=== PATIENT | female | born 1975 | race Caucasian/White ===

== ENCOUNTER → 2020-07-26 | Day surgery (SDC) | payer OTHER ==
[~2020-07-26] MED LIST: HYDROCODON-ACE1 EAC7 PO; NOHOMEMEDICATIONS PO
--- NOTE | ~2020-07-26 | OP ---
[facility] [address] [place] [address] OPERATIVE REPORT Name: YOMI JEWELL Room: [facility]#: [id number] Admission: 07/26/20 Attend Phys: Ryna Burnett Discharge: Date of : 71 Report #: [id number] THIS REPORT FOR: cc: Cayetano Botello MD, Khanh MD Patterson, Jonathan D. MD ~ DOC #: [id number] Ryan Burnett MD DATE OF SURGERY: 07/26/2020 PREOPERATIVE DIAGNOSIS: Incarcerated ventral hernia. POSTOPERATIVE DIAGNOSIS: Incarcerated ventral hernia. PROCEDURE: Laparoscopic repair of incarcerated ventral hernia with mesh. SURGEON: Ryan Burnett MD. ANESTHESIA: General. ESTIMATED BLOOD LOSS: Minimal. SPECIMENS: None. DESCRIPTION OF PROCEDURE: After informed consent was obtained, the patient was brought to the operating room and placed supine. SCDs were placed and working, preoperative antibiotics were administered, general anesthesia was induced. The abdomen was prepped and draped in the usual sterile fashion. A 5 mm incision was made in the left upper quadrant. A 5 mm trocar was placed under direct vision. Pneumoperitoneum was established. A left-sided 8 mm trocar and a right-sided 5 mm trocar were placed under direct vision. She had a hernia at the umbilicus measuring approximately 1.2 cm. There was some preperitoneal fat that was incarcerated. This was reduced. She had a smaller defect just superior and to the left lateral side of this. Again, all the hernia contents were reduced. An 11 cm Bard Ventralight mesh was inserted. It was tacked up to the abdominal wall to cover both the defects. A transfascial 2-0 Ethibond suture was placed using a PMI suture passer. The ports were then removed under direct vision. The skin was closed with 4-0 Monocryl. Incisions were sealed with Steri-Strips. COMPLICATIONS: None. DISPOSITION: The patient was taken to recovery in satisfactory condition[place] [address] OPERATIVE REPORT Name: JEWELLYOMI Room: [facility]#: [id number] Admission: 07/26/20 Attend Phys: Ryan Burnett Discharge: Date of : 71 Report #: [id number] JDP/NIS By: [id number] Burnett MD /nt
== END | disposition home or self-care (01) ==
LOC: M.SUR 09:11
PROVIDERS: ATTEND Surgery
DX: K43.6 Other and unspecified ventral hernia with obstruction, without gangrene (principal); Z20.822 Contact with and (suspected) exposure to COVID-19